=== PATIENT | male | born 1995 | race Hispanic/Latino ===

== ENCOUNTER 2021-11-11 19:29 | Emergency (ER) | payer OTHER, SELFPAY ==
[2021-11-11 19:51] VITALS: BP 143/84; RESP 20; TEMP 37.6; O2SAT 99; BMI 23.6
--- NOTE | 2021-11-11 20:33 | ED.PSYCH ---
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 He says that he suffers from PTSD from events that happened when he was a child. He says that he has tried sertraline in the past but it was not very effective. He also tried trazodone for sleep which was not very effective. He is planning on going to the [facility] for help with this but did not feel like he could wait until Saturday. He is feeling very anxious and he finds his dreams very intrusive and making it very difficult for him to sleep. He denies URI symptoms cough, fever, chest or abdominal symptoms. He specifically denies suicidal and homicidal ideation. He denies current substance use other than occasional alcohol of which he has had none in the previous days. Related Data Previous Rx's Medication Instructions Recorded risperidone 1 mg tablet 1 mg PO BEDTIME #10 tabs 11/11/21 Allergies Allergy/AdvReac Type Severity Reaction Status Date / Time No Known Drug Allergies Allergy Verified 11/11/21 19:57 Review of Systems Review of Systems Narrative: Complete review of systems is negative other than as noted above. Patient History Social History Smoking Status: Never smoker Smoking Status: Never smoker alcohol intake frequency: a few times a week Substance Use Type: does not use Exam Narrative Exam Narrative: GENERAL: Alert, cooperative and in no distress. HEAD: Atraumatic. Normocephalic. EYES: Sclera are clear without icterus. Extraocular movements are full. ENT: No rhinorrhea NECK: No visible abnormality RESPIRATORY: No respiratory distress GASTROINTESTINAL: Nondistended EXTREMITIES: No obvious trauma. NEURO: Nonfocal, normal speech SKIN: No rash or erythema of visible areas PSYCH: Normally oriented. Normal range of affect. Appropriate behavior Initial Vital Signs Initial Vital Signs: Vital Signs Temperature 99.7 F H 11/11/21 19:51 Respiratory Rate 20 11/11/21 19:51 Blood Pressure 143/84 H 11/11/21 19:51 Pulse Oximetry 99 11/11/21 19:51 Oxygen Delivery Method 11/11/21 19:51 Course Orders Ordered: Discontinued Medications Risperidone (Risperidone 1 Mg Tablet) 1 mg PO DAILY ONE Stop: 11/11/21 20:31 Last Admin: 11/11/21 20:46 Dose: 1 mg Documented By: KIANA Vital Signs Vital signs: Vital Signs - 8 hr 11/11/21 19:51 Temperature 99.7 F H Respiratory Rate 20 Blood Pressure 143/84 H Pulse Oximetry 99 Oxygen Delivery Method Room Air MDM - Psych MDM Narrative Medical decision making narrative: 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 Will prescribe risperidone 1 mg at HS and recommend follow-up with the clinic. He says that he has already tried trazodone and amitriptyline without success. Discharge Plan Departure Patient Disposition: Home Clinical Impression: Depression, Acute post-traumatic stress disorder, Insomnia Activity Restrictions/Additional Instructions: For sleep I recommend sleep hygiene techniques which you can read about on [email or web address] or [email or web address] also, I recommend risperidone 1 mg at bedtime daily. Follow-up with mental health provider at the [facility]. Return to the ER if you are in crisis especially if you have thoughts of suicide. Prescriptions: New risperidone 1 mg tablet 1 mg PO BEDTIME Qty: 10 0RF Referrals: ProviderOlegario [Primary Care Provider] - Visit Report Forms: Patient Portal/API
[2021-11-11] MEDS: risperiDONE 1 MG TABLET PO (20:46)
[2021-11-11 20:57] VITALS: BP 127/70; PULSE 83; O2SAT 100
== END 2021-11-11 20:59 | disposition home or self-care (01) ==
PROVIDERS: Emergency Provider Family Medicine Addiction Medicine
DX: F32.A Depression, unspecified (principal); F43.11 Post-traumatic stress disorder, acute; G47.00 Insomnia, unspecified
CPT/HCPCS: 99283